=== PATIENT | female | born 1985 | race Caucasian/White ===

== ENCOUNTER 2021-04-20 21:16 | Emergency (ER) | payer OTHER ==
[~2021-04-20] VITALS: Ht 165.1 cm; Wt 108.9 kg
[2021-04-20] MEDS ORDERED: PRENATALES (21:33)
[2021-04-21] MEDS ORDERED: PRENATAL + DHA1 EAC1 PO (01:33)
== END 2021-04-20 23:45 | disposition home or self-care (01) ==
LOC: ER 21:16
DX: O20.9 Hemorrhage in early pregnancy, unspecified (principal); Z3A.15 15 weeks gestation of pregnancy; Z37.0 Single live birth

== ENCOUNTER 2021-04-21 01:21 | Day surgery (SDC) | payer OTHER ==
[~2021-04-21] VITALS: Ht 165.1 cm; Wt 108.9 kg
[~2021-04-21 01:21] MED LIST: PRENATALES
[2021-04-21] MEDS ORDERED: PRENATAL + DHA1 EAC1 PO (01:33)
== END 2021-04-21 20:00 | disposition home or self-care (01) ==
LOC: ER 01:21 → CIR.AMB 09:14
PROVIDERS: ATTEND Specialist
DX: O02.1 Missed abortion (principal); J45.909 Unspecified asthma, uncomplicated

== ENCOUNTER 2021-10-05 13:37 | Outpatient (CLI) | payer OTHER ==
[~2021-10-05 13:37] MED LIST changes: +PRENATAL + DHA1 EAC1 PO
== END 2021-10-05 14:45 | disposition home or self-care (01) ==
LOC: PRENATAL 13:37
PROVIDERS: ATTEND Obstetrics & Gynecology Maternal & Fetal Medicine
DX: O36.80X0 Pregnancy with inconclusive fetal viability, not applicable or unspecified (principal); O99.210 Obesity complicating pregnancy, unspecified trimester; O36.1999 Maternal care for other isoimmunization, unspecified trimester, other fetus; Z3A.12 12 weeks gestation of pregnancy